=== PATIENT | female | born 1965 | race Caucasian/White ===

== ENCOUNTER 2020-11-21 15:31 | Outpatient (CLI) | payer BC, SELFPAY | END 2020-11-21 15:32 | disposition home or self-care (01) | LOC: ANHCOVIDVC 15:31 | PROVIDERS: PCP Nurse Practitioner Adult Health | DX: Z23 Encounter for immunization (principal) | CPT/HCPCS: 0001A; 91300 ==

== ENCOUNTER 2020-12-12 15:29 | Outpatient (CLI) | payer BC, SELFPAY | END 2020-12-12 15:30 | disposition home or self-care (01) | LOC: ANHCOVIDVC 15:29 | PROVIDERS: PCP Nurse Practitioner Adult Health | DX: Z23 Encounter for immunization (principal) | CPT/HCPCS: 0002A; 91300 ==

== ENCOUNTER 2022-04-20 00:42 | Day surgery (SDC) | payer BC, SELFPAY ==
[2022-04-08 12:29] VITALS: BMI 27.5
--- NOTE | 2022-04-20 06:40 | P.PNAN_ITS ---
Anes - Initial Pre Proc Eval Procedure: Operation Date: 04/20/22 08:00 Proposed Procedures p Screening Colonoscopy - Baltazar Arevalo MD Date/Time: 04/20/22 06:40 Surgeon: Baltazar Arevalo MD Pre Op Diagnosis: neoplasm screening Patient Data Age: 56 Gender: F Height: 1.65 m Weight: 75 kg Allergies Allergy/AdvReac Type Severity Reaction Status Date / Time No Known Allergies Allergy Verified 04/20/22 06:58 Home Medications Medication Instructions Recorded Confirmed Type clobetasol 0.05 % topical ointment 1 applic topical BID 2 weeks #60 12/10/21 04/08/22 Rx grams levothyroxine 75 mcg tablet 75 mcg PO DAILY 04/08/22 04/08/22 History Patient hx anesthesia problems: none Family hx anesthesia problems: none Results Review: All pre-operative results and documents have been reviewed as part of the pre- operative evaluation. [facility] Past Medical History Medical History (Updated 04/20/22 @ 06:40 by Ed Mcqueen DO) Hypothyroidism Social History Social History Smoking status: Never smoker Substance use type: does not use Living arrangements: with family Spiritual care concerns: No Anes - Eval Final PreProcedure Day of Procedure 04/20/22 06:40 Patient weight: overweight Heart: regular rate and rhythm Lungs: clear to auscultation Airway: Mallampati scale class II Neurological: alert and oriented Last oral intake: >/= 8 hours ASA classification: II Emergent: no Anesthetic plan: proceed Anesthesia type and monitoring: general GIVS and standard monitoring Results Review: All pre-operative results and documents have been reviewed as part of the pre- operative evaluation. Informed Consent: The patient's anesthetic plan and its attendant risks and benefits were discussed with the patient/family/POA. Questions were solicited and answers provided to the satisfaction of the patient/family/POA.
[2022-04-20 07:00] VITALS: BP 131/71; PULSE 90; RESP 18; TEMP 36.3; O2SAT 100
[2022-04-20] MEDS: LACTATED RINGERS 1,000 ML 150 ML IV CONT (07:07)
--- NOTE | 2022-04-20 07:48 | PM.HPGS ---
History of Present Illness History of Present Illness Consent: Risks, benefits, and alternatives have been discussed and questions answered. Patient agrees to proceed with procedure. Chief complaint: neoplasm screening Narrative: Mila Sinha is a 56 year old female here for first screening colonoscopy Review of Systems Constitutional: Constitutional: Denies headache(s) and Denies weakness Eyes: Eyes: Denies blurry vision ENT: Reports Normal hearing present, Denies headache(s) and Denies neck pain Cardiovascular: Cardiovascular: Denies chest pain and Denies dyspnea Respiratory: Respiratory: Denies dyspnea Gastrointestinal: Gastrointestinal: Reports no additional gastrointestinal complaints Genitourinary: Genitourinary: Denies dysuria Musculoskeletal: Musculoskeletal: Denies neck pain Integumentary/Breasts: Skin/Breast: Denies dry skin Neurologic: Reports Normal hearing present, Denies headache(s) and Denies weakness Psychiatric: Psychiatric: Denies anxiety Endocrine: Endocrine: Denies change in body appearance Hematologic/Lymphatic: Hematologic/Lymphatic: Denies easy bleeding Allergic/Immunologic: Allergic/Immunologic: Denies urticaria PMFSH Past Medical History Medical History (Updated 04/20/22 @ 07:49 by Baltazar Arevalo MD) Colon cancer screening Hypothyroidism Social History Social History Smoking status: Never smoker Substance use type: does not use Living arrangements: with family Spiritual care concerns: No Meds Home Medications and Allergies Home Medications Medication Instructions Recorded Confirmed Type clobetasol 0.05 % topical ointment 1 applic topical BID 2 weeks #60 12/10/21 04/08/22 Rx grams levothyroxine 75 mcg tablet 75 mcg PO DAILY 04/08/22 04/08/22 History Allergies Allergy/AdvReac Type Severity Reaction Status Date / Time No Known Allergies Allergy Verified 04/20/22 06:58 Vital Signs Vital Signs - 24 hr 04/20/22 07:00 Temperature 97.3 F L Pulse Rate 90 Respiratory Rate 18 Blood Pressure 131/71 Pulse Oximetry 100 Oxygen Delivery Room Air Exam Const: General: comfortable and no acute distress HENMT: General nose exam: Normal nares present Eyes: General: appearance normal, both eyes and all related structures Neck: Neck: no JVD Resp: Auscultation: clear to auscultation bilaterally Cardio: Rate: regular rate Rhythm: regular rhythm GI: Inspection: non-distended GI Palp: Yes Soft to palpation Skin: General skin exam: normal color Neuro: General: gait normal Speech: normal speech Extrem: General: normal to inspection Psych: Mental Status: mental status grossly normal Assessment and Plan Assessment and plan (1) Colon cancer screening: Code(s): Z12.11 - Encounter for screening for malignant neoplasm of colon Status: Acute Assessment and Plan: colonoscopy
[2022-04-20 08:24] VITALS: BP 124/63; PULSE 64; RESP 18; O2SAT 99
[2022-04-20 08:34] VITALS: BP 103/64; PULSE 63; RESP 17; O2SAT 100
[2022-04-20 08:44] VITALS: BP 112/63; PULSE 62; RESP 18; O2SAT 99
== END 2022-04-20 08:59 | disposition home or self-care (01) ==
PROVIDERS: PCP Nurse Practitioner Adult Health; Visit Provider Internal Medicine Gastroenterology
PROC: 0DJD8ZZ Inspection of Lower Intestinal Tract, Via Natural or Artificial Opening Endoscopic (ICD-10-PCS; CPT 45378; principal; 2022-04-20 08:00)
DX: Z12.11 Encounter for screening for malignant neoplasm of colon (principal); K64.8 Other hemorrhoids; E03.9 Hypothyroidism, unspecified
CPT/HCPCS: 45378; J2704; J7120

== ENCOUNTER 2023-06-24 14:03 | Outpatient (CLI) | payer BC, SELFPAY ==
[2023-06-24 19:17] LABS: Alanine Aminotransferase 23 U/L (6-35); Albumin Level 4.6 g/dL (3.5-5.1); Alkaline Phosphatase 80 U/L (38-126); Anion Gap 11 mmol/L (8-16); Aspartate Amino Transferase 36 U/L (14-36); Bilirubin,Total 0.7 mg/dL (0.2-1.3); Blood Urea Nitrogen 17 mg/dL (7-17); Calcium 9.8 mg/dL (8.4-10.2); Carbon Dioxide 27 mmol/L (22-30); Chloride 101 mmol/L (98-107); Cholesterol 236 mg/dL (0-200); Estimated Glomerular Filt Rate 57; Glucose 92 mg/dL (65-110); HDL Direct 66 mg/dL; Potassium 4.1 mmol/L (3.4-5.0); Sodium 139 mmol/L (137-145); Triglycerides 78 mg/dL (<150)
[2023-06-24 19:32] LABS: LDL Cholesterol Direct 128 mg/dL
[2023-06-24 19:50] LABS: Hematocrit 42.5 % (37.0-47.0); Hemoglobin 13.5 g/dL (12.0-15.0); Mean Corpuscular HGB Conc 31.8 g/dl (32-36); Mean Corpuscular Volume 91.2 fl (80-100); Mean Platelet Volume 12.3 fl (7.4-10.4); Platelet Count Result 138 k/mm3 (150-375); Red Blood Count 4.66 M/mm3 (4.2-5.4); Red Cell Distribution Width 12.6 % (11.5-14.5); White Blood Count 5.8 K/mm3 (4.5-10.0)
== END 2023-06-24 14:04 | disposition home or self-care (01) ==
LOC: ANHGOSHLAB 14:05
PROVIDERS: PCP Family Medicine; Visit Provider Family Medicine
DX: E03.9 Hypothyroidism, unspecified (principal); E66.3 Overweight; Z79.899 Other long term (current) drug therapy
CPT/HCPCS: 36415; 80053; 80061; 84439; 84443; 85027

== ENCOUNTER → 2023-06-24 16:19 | Outpatient (CLI) | payer BC, SELFPAY ==
--- NOTE | ~2023-06-24 | XR_ITS ---
EXAMINATION: XR foot RT min 3V DATE: 06/24/2023 16:34 INDICATION: Right foot pain TECHNIQUE: Dorsoplantar, two oblique and lateral views of the right foot were obtained. COMPARISON: None. FINDINGS: Alignment is normal. No fracture. Mild osteoarthritis at the first metatarsophalangeal and a few inte rphalangeal joints. Small plantar calcaneal spur. Soft tissues are unremarkable. No ankle joint effus ion. IMPRESSION: 1. 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 Reviewed, dictated and finalized at location [facility]. [facility] IMPRESSION: 1. Small plantar calcaneal spur and mild polyarticular osteoarthritis in the ri t forefoot.
== END ==
PROVIDERS: PCP Family Medicine; Visit Provider Family Medicine
DX: M79.671 Pain in right foot (principal); M77.31 Calcaneal spur, right foot; M19.071 Primary osteoarthritis, right ankle and foot
CPT/HCPCS: 73630

== ENCOUNTER 2023-09-02 09:01 | Outpatient (CLI) | payer BC, SELFPAY ==
--- NOTE | 2023-09-02 09:53 | EST_ITS ---
Patient Info Name: Mila Sinha Age: 57 years : 1965 Gender: Female Ht: 65 in Wt: 159 lbs BSA: 1.83 m2 HR: 74 bpm BP: 152 / 95 mmHg Heart Rhythm: Sinus Rhythm Exam Date: 09/02/2023 10:03 AM Exam Location: [facility] Patient Status: Outpatient Admit Date: 09/02/2023 Staff Ordering Physician: Desmond Reardon DO Attending Provider: Desmond Reardon DO Exercise Technologist: Mallory Oro CT Exercise Physician: Desmond Reardon DO Exam Type: CA stress test treadmill Study Info Indications R07.89 - Other chest pain A treadmill exercise stress test was performed. Summary 1. 1. Negative Adis exercise stress test for ischemic ST changes by ECG criteria. 2. 2. Poor functional capacity, achieving 4 METs of workload. 3. 3. Rapid HR response to exercise. 4. 4. Appropriate HR recovery at 1 minute post exercise. 5. 5. Baseline hypertension with hypertensive response to exercise. 6. 6. No imaging with stress testing. 7. 7. Patient informed of the above results. Protocol: Adis Stress ECG Details Stage: REST Duration (min): 0 min : 59 sec Speed (mph): 0.0 Grade (%): 0 HR (bpm): 73 SBP (mmHg): 152 DBP (mmHg): 95 METS: --- Stage: REST Duration (min): 9 min : 14 sec Speed (mph): 0.0 Grade (%): 0 HR (bpm): 77 SBP (mmHg): 152 DBP (mmHg): 95 METS: --- Stage: STAGE 1 Duration (min): 1 min : 0 sec Speed (mph): 1.7 Grade (%): 10 HR (bpm): 122 SBP (mmHg): 152 DBP (mmHg): 95 METS: --- Stage: STAGE 1 Duration (min): 2 min : 0 sec Speed (mph): 1.7 Grade (%): 10 HR (bpm): 138 SBP (mmHg): 152 DBP (mmHg): 95 METS: --- Stage: STAGE 1 Duration (min): 3 min : 0 sec Speed (mph): 1.7 Grade (%): 10 HR (bpm): 146 SBP (mmHg): 217 DBP (mmHg): 66 METS: --- Stage: RECOVERY Duration (min): 0 min : 59 sec Speed (mph): 0.0 Grade (%): 0 HR (bpm): 123 SBP (mmHg): 217 DBP (mmHg): 66 METS: --- Stage: RECOVERY Duration (min): 1 min : 59 sec Speed (mph): 0.0 Grade (%): 0 HR (bpm): 83 SBP (mmHg): 217 DBP (mmHg): 66 METS: --- Stage: RECOVERY Duration (min): 2 min : 59 sec Speed (mph): 0.0 Grade (%): 0 HR (bpm): 83 SBP (mmHg): 170 DBP (mmHg): 82 METS: --- Stage: RECOVERY Duration (min): 3 min : 6 sec Speed (mph): 0.0 Grade (%): 0 HR (bpm): 82 SBP (mmHg): 170 DBP (mmHg): 82 METS: --- Rest HR: 77 bpm Peak HR: 146 bpm Rest Sys BP: 152 mmHg Peak Sys BP: 217 mmHg Max Pred HR: 162 bpm % Max Pred HR: 90 % Target HR: 138 bpm Max RPP: 31,682 bpm*mmHg Dorantes Score: -7 Termination Reason: Reached target heart rate or workload Cardiac Symptoms: Shortness of breath Max ST Seg Deviation: 2.00 mm Total Time: 3 min : 0 sec Rest Escalera BP: 95 mmHg Peak [place]alera BP: 66 mmHg Angina Score: None Total METS: 4.7 Resting ECG Sinus rhythm, IRBBB. Stress ECG No ST changes. Arrhythmias None. Report Signatures
== END 2023-09-02 09:02 | disposition home or self-care (01) ==
PROVIDERS: PCP Family Medicine; Visit Provider Internal Medicine Cardiovascular Disease
DX: R07.9 Chest pain, unspecified (principal); I10 Essential (primary) hypertension
CPT/HCPCS: 93017

== ENCOUNTER 2023-12-02 09:28 | Outpatient (CLI) | payer BC, SELFPAY ==
[2023-12-02 12:45] LABS: Hematocrit 43.3 % (37.0-47.0); Hemoglobin 13.7 g/dL (12.0-15.0); Mean Corpuscular HGB Conc 31.6 g/dl (32-36); Mean Corpuscular Hemoglobin 28.8 pg (26-34); Mean Platelet Volume 11.4 fl (7.4-10.4); Platelet Count Result 156 k/mm3 (150-375); Red Blood Count 4.76 M/mm3 (4.2-5.4); Red Cell Distribution Width 12.3 % (11.5-14.5); White Blood Count 5.6 K/mm3 (4.5-10.0)
[2023-12-02 14:16] LABS: Alanine Aminotransferase 31 U/L (6-35); Albumin Level 4.4 g/dL (3.5-5.1); Alkaline Phosphatase 86 U/L (38-126); Anion Gap 3 mmol/L (4-12); Aspartate Amino Transferase 53 U/L (14-36); Bilirubin,Total 0.5 mg/dL (0.2-1.3); Blood Urea Nitrogen 21 mg/dL (7-17); Calcium 9.8 mg/dL (8.4-10.2); Carbon Dioxide 27 mmol/L (22-30); Chloride 106 mmol/L (98-107); Cholesterol 192 mg/dL (0-200); Estimated Glomerular Filt Rate 57; Glucose 102 mg/dL (65-110); HDL Direct 63 mg/dL; Potassium 5.1 mmol/L (3.4-5.0); Sodium 136 mmol/L (137-145); Triglycerides 65 mg/dL (<150)
[2023-12-02 14:28] LABS: LDL Cholesterol Direct 110 mg/dL
[2023-12-02 14:43] LABS: Thyroid Stimulating Hormone 0.119 uIU/mL (0.465-4.680)
[2023-12-02 21:51] LABS: Free T4 Free Thyroxine 1.63 ng/mL (0.78-2.19)
== END 2023-12-02 09:29 | disposition home or self-care (01) ==
LOC: ANHGOSHLAB 09:30
PROVIDERS: PCP Family Medicine; Visit Provider Family Medicine
DX: E03.9 Hypothyroidism, unspecified (principal); E66.3 Overweight; E78.5 Hyperlipidemia, unspecified; Z79.899 Other long term (current) drug therapy
CPT/HCPCS: 36415; 80053; 80061; 84439; 84443; 85027

== ENCOUNTER 2024-02-07 15:36 | Outpatient (CLI) | payer BC, SELFPAY ==
--- NOTE | ~2024-02-07 | MM_ITS ---
EXAMINATION: MM screening rossana BI w angie HISTORY: Screening mammogram, family history of breast cancer in her sister. TECHNIQUE: Craniocaudal and mediolateral oblique 3-D tomosynthesis images were obtained and synthetic 2-D images were generated. CAD analysis was submitted and interpreted. COMPARISON: No prior mammogram is available for comparison at this institution. BREAST PARENCHYMAL COMPOSITION:Dense: The breasts are heterogeneously dense, which may obscure small masses. FINDINGS: No suspicious mass, calcification, or architectural distortion are identified in either jose guadalupe ast to suggest malignancy. There has been no suspicious interval change. IMPRESSION: No mammographic evidence of malignancy. Recommend routine screening mammography in one year. BI-RADS Category 1: Negative Reviewed, dictated and finalized at location .
== END 2024-02-07 15:37 ==
LOC: MICIMG 15:39
PROVIDERS: PCP Family Medicine; Visit Provider Family Medicine
DX: Z12.31 Encounter for screening mammogram for malignant neoplasm of breast (principal)
CPT/HCPCS: 77063; 77067